=== PATIENT | male | born 1950 | race Caucasian/White ===

== ENCOUNTER 2017-12-19 16:02 | Emergency (ER) | payer MEDICARE, BC ==
--- NOTE | 2017-12-19 17:41 | EDM.PDOC ---
ED HPI GENERAL MEDICAL PROBLEM - General Chief Complaint: General Stated Complaint: NECK PROBLEMS AND HEAD PAIN [id number] Time Seen by Provider: 12/19/17 17:46 Source of Information: Reports: Patient History Limitations: Reports: No Limitations - History of Present Illness INITIAL COMMENTS - FREE TEXT/NARRATIVE: Patient comes emergency department today with his significant other with concerns of fatigue and headache. Over the past week the patient has been very tired and fatigued. He gets up in the morning and goes downstairs and is on the couch and sleeps the rest of the day. This is not normal for him. He is also complained of a posterior occipital headache that radiates up to the middle most cephalad aspect of the skull. He has not fallen and hit his head recently. No weakness dizziness or lightheadedness. No fever no chills. No change in the functionality of his upper or lower extremities. No paresthesias of his upper or lower extremity. No change in his bowel or bladder. His vision is somewhat blurry and saw an flange machine operator this week and was diagnosed with cataracts. He also has noted to have some injected sclera for which I put him on some steroid eyedrops for his injection of the sclera as well as his continuous watering of his eyes. No problems sleeping and no sleep apnea per the significant other. He does admit to drinking alcohol on a daily basis about 4-7 drinks a day plus quite a bit of wine at dinner and before dinner. No black or tarry stools. No recent falls or trauma. No change in visual acuity other than blurry and watery eyes and difficult focusing. . Occipital Headache Pain Score (Numeric/FACES): 2 - Related Data Allergies Allergy/AdvReac Type Severity Reaction Status Date / Time No Known Allergies Allergy Verified 12/19/17 16:56 Home Meds: Home Meds Allopurinol [Zyloprim] 100 mg PO DAILY 12/19/17 [History] Bisoprolol/Hydrochlorothiazide [Bisoprolol/HCTZ 10-6.25 MG] 1 tab PO DAILY 12/19 [History] Lisinopril 40 mg PO DAILY 12/19/17 [History] atorvaSTATin [Lipitor] 20 mg PO DAILY 12/19/17 [History] Past Medical History Cardiovascular History: Reports: High Cholesterol, Hypertension - Past Surgical History HEENT Surgical History: Reports: Adenoidectomy, Tonsillectomy Social & Family History - Tobacco Use Smoking Status *Q: Never Smoker - Caffeine Use Caffeine Use: Reports: Soda - Alcohol Use Days Per Week of Alcohol Use: 7 Number of Drinks Per Day: 5 Total Drinks Per Week: 35 - Recreational Drug Use Recreational Drug Use: No ED ROS GENERAL - Review of Systems Review Of Systems: ROS reveals no pertinent complaints other than HPI. ED EXAM, GENERAL - Physical Exam Exam: See Below Exam Limited By: No Limitations General Appearance: Alert, WD/WN, No Apparent Distress Eye Exam: Bilateral Eye: EOMI, PERRL, Other (sclera bilaterally with injection. Noted cataracts bilaterally as well. ) Ears: Normal External Exam, Normal Canal, Normal TMs Ear Exam: Bilateral Ear: TM normal Nose: Normal Inspection, Normal Mucosa, No Blood Throat/Mouth: Normal Inspection, Normal Lips, Normal Oropharynx Head: Atraumatic, Normocephalic Neck: Normal Inspection, Supple, Non-Tender, Full Range of Motion Respiratory/Chest: No Respiratory Distress, Lungs Clear, Normal Breath Sounds, No Accessory Muscle Use Cardiovascular: Normal Peripheral Pulses, Regular Rate, Rhythm Peripheral Pulses: 2+: Radial (L), Radial (R), Posterior Tibial (L), Posterior Tibial (R), Dorsalis Pedis (L), Dorsalis Pedis (R) GI/Abdominal: Normal Bowel Sounds, Soft, No Organomegaly, No Distention (Male) Exam: Deferred Rectal (Males) Exam: Deferred Back Exam: Normal Inspection, Full Range of Motion Extremities: Normal Inspection, Normal Range of Motion, No Pedal Edema, Normal Capillary Refill Neurological: Alert, Oriented, CN II-XII Intact, Normal Cognition, Normal Gait, Normal Reflexes, No Motor/Sensory Deficits Psychiatric: Anxious Skin Exam: Warm, Dry, Intact, Normal Color, No Rash Lymphatic: No Adenopathy EKG INTERPRETATION EKG Date: 12/19/17 Time: 18:11 Rhythm: NSR Rate (Beats/Min): 62 [place]: Normal P-Wave: Present QRS: Normal ST-T: Normal QT: Normal Comparison: NA - No Prior EKG Course - Vital Signs Last Recorded V/S: Last Vital Signs Temp 37.1 C 12/19/17 19:47 Pulse 71 12/19/17 19:47 Resp 14 12/19/17 19:47 BP 156/78 H 12/19/17 19:47 Pulse Ox 98 12/19/17 19:47 - Orders/Labs/Meds Orders: Active Orders 24 hr Category Date Time Status EKG 12 Lead [EKG Documentation Completion] [] URGENT Care 12/19/17 17:50 Active Peripheral IV Care [RC] . DIRECTED Care 12/19/17 17:47 Active UA W/MICROSCOPIC [URIN] Stat Lab 12/19/17 19:21 Ordered Peripheral IV Insertion Adult [OM.PC] Stat Oth 12/19/17 17:47 Ordered Labs: Laboratory Tests 12/19/17 12/19/17 12/19/17 Range/Units 18:01 18:01 18:01 WBC 5.6 (5.0-10.0) 10^3/uL RBC 4.69 (4.6-6.2) 10^6/uL Hgb 16.4 (14.0-18.0) g/dL Hct 45.8 (40.0-54.0) % MCV 97.7 (80-100) fL MCH 35.0 H (27.0-34.0) pg MCHC 35.8 H (33.0-35.0) g/dL Plt Count 76 L (150-450) 10^3/uL Neut % (Auto) 67.3 (42.2-75.2) % Lymph % (Auto) 16.9 L (20.5-50.1) % [place] % (Auto) 15.0 H (2-8) % Eos % (Auto) 0.4 L (1.0-3.0) % Baso % (Auto) 0.4 (0.0-1.0) % Sodium 136 (135-145) mmol/L Potassium 4.3 (3.6-5.0) mmol/L Chloride 104 (101-111) mmol/L Carbon Dioxide 23.0 (21.0-31.0) mmol/L Anion Gap 13.3 BUN 9 (7-18) mg/dL Creatinine 0.9 (0.6-1.3) mg/dL Est Cr Clr Drug Dosing 79.98 mL/min Estimated GFR (MDRD) > 60 BUN/Creatinine Ratio 10.00 Glucose 95 (74-105) mg/dL Calcium 8.7 (8.4-10.2) mg/dl Magnesium 1.5 L (1.8-2.5) mg/dL Total Bilirubin 2.4 H (0.2-1.0) mg/dL AST 122 H (10-42) IU/L ALT 41 (10-60) IU/L Alkaline Phosphatase 127 H (42-121) IU/L Troponin I < 0.02 (0.00-0.02) ng/ml C-Reactive Protein 1.5 H (0.0-1.3) mg/dL Total Protein 7.3 (6.7-8.2) g/dl Albumin 3.3 (3.2-5.5) g/dl Globulin 4.0 Albumin/Globulin Ratio 0.83 TSH, Ultra Sensitive 2.87 (0.45-5.33) uIu/mL Urine Color (YELLOW) Urine Appearance (CLEAR) Urine pH (5.0-9.0) Ur Specific [place] (1.005-1.030) Urine Protein (NEGATIVE) Urine Glucose (UA) (NEGATIVE) Urine Ketones (NEGATIVE) Urine Occult Blood (NEGATIVE) Urine Nitrite (NEGATIVE) Urine Bilirubin (NEGATIVE) Urine Urobilinogen (0.2-1.0) mg/dL Ur Leukocyte Esterase (NEGATIVE) Urine RBC /HPF Urine WBC (0-5/HPF) /HPF Ur Epithelial Cells /HPF Urine Bacteria (0-FEW/HPF) /HPF Urine Mucus /LPF Ethyl Alcohol 40 mg/dL //18 Range/Units 19:21 WBC (5.0-10.0) 10^3/uL RBC (4.6-6.2) 10^6/uL Hgb (14.0-18.0) g/dL Hct (40.0-54.0) % MCV (80-100) fL MCH (27.0-34.0) pg MCHC (33.0-35.0) g/dL Plt Count (150-450) 10^3/uL Neut % (Auto) (42.2-75.2) % Lymph % (Auto) (20.5-50.1) % [place] % (Auto) (2-8) % Eos % (Auto) (1.0-3.0) % Baso % (Auto) (0.0-1.0) % Sodium (135-145) mmol/L Potassium (3.6-5.0) mmol/L Chloride (101-111) mmol/L Carbon Dioxide (21.0-31.0) mmol/L Anion Gap BUN (7-18) mg/dL Creatinine (0.6-1.3) mg/dL Est Cr Clr Drug Dosing mL/min Estimated GFR (MDRD) BUN/Creatinine Ratio Glucose (74-105) mg/dL Calcium (8.4-10.2) mg/dl Magnesium (1.8-2.5) mg/dL Total Bilirubin (0.2-1.0) mg/dL AST (10-42) IU/L ALT (10-60) IU/L Alkaline Phosphatase (42-121) IU/L Troponin I (0.00-0.02) ng/ml C-Reactive Protein (0.0-1.3) mg/dL Total Protein (6.7-8.2) g/dl Albumin (3.2-5.5) g/dl Globulin Albumin/Globulin Ratio TSH, Ultra Sensitive (0.45-5.33) uIu/mL Urine Color Dark yellow (YELLOW) Urine Appearance Clear (CLEAR) Urine pH 7.0 (5.0-9.0) Ur Specific [place] 1.015 (1.005-1.030) Urine Protein Negative (NEGATIVE) Urine Glucose (UA) Negative (NEGATIVE) Urine Ketones Negative (NEGATIVE) Urine Occult Blood Negative (NEGATIVE) Urine Nitrite Negative (NEGATIVE) Urine Bilirubin Negative (NEGATIVE) Urine Urobilinogen 1.0 (0.2-1.0) mg/dL Ur Leukocyte Esterase Negative (NEGATIVE) Urine RBC 0-5 /HPF Urine WBC 0-5 (0-5/HPF) /HPF Ur Epithelial Cells Few /HPF Urine Bacteria Few (0-FEW/HPF) /HPF Urine Mucus Few H /LPF Ethyl Alcohol mg/dL Meds: Medications Discontinued Medications Generic Name Dose Route Start Last Admin Trade Name Freq PRN Reason Stop Dose Admin Multivitamins/Minerals 10 ml/ 1,011.2 mls @ 500 mls/hr 12/19/17 17:48 18:04 Folic Acid 1 mg/ Thiamine HCl IV 12/19/17 19:49 500 mls/hr 100 mg/ Lactated Ringer's ONETIME ONE Administration Magnesium Sulfate 2 gm/ Premix 50 mls @ 25 mls/hr 12/19/17 19:15 12/19/17 20: 13 IV 12/19/17 21:14 25 mls/hr ONETIME ONE Administration Sodium Chloride 1,000 mls @ 125 mls/hr 12/19/17 20:30 Normal Saline IV ASDIRECTED VERONICA Sodium Chloride 10 ml 12/19/17 17:47 12/19/17 18:05 Saline Flush FLUSH 10 ml ASDIRECTED PRN Administration Keep Vein Open - Radiology Interpretation Free Text/Narrative:: CT head no acute intracranial findings although right frontal concerns for prominent vein possible venous thrombosus, MRI MRV recommended for further evaluation. - Re-Assessments/Exams Free Text/Narrative Re-Assessment/Exam: 12/19/17 18:23 IV Banana bag, 12/19/17 22:16 Magnesium 2gram IVPB over 2 hrs. NS at 125mls/hr. Departure - Departure Time of Disposition: 20:15 Disposition: DC/Tfer to [facility] 02 Clinical Impression: Headache Qualifiers: Headache type: unspecified Headache chronicity pattern: unspecified pattern Intractability: intractable Qualified Code(s): R51 - Headache - Discharge Information Referrals: PCP,None [Primary Care Provider] - Forms: ED Department Discharge ED Communication - Discussed Case With (1) Discussed Case With (1): Admitting Provider (Dr. Stephenson hospitalist and Dr. Vargas the neurologist at [facility]. HPI ER COURSE findings and concerns were relayed to him. They accepted the patient in transfer to their facility.) - My Orders Last 24 Hours: My Active Orders 12/19/17 17:47 Peripheral IV Care [RC] . DIRECTED Peripheral IV Insertion Adult [OM.PC] Stat 12/19/17 17:50 EKG 12 Lead [EKG Documentation Completion] [RC] URGENT 12/19/17 19:21 UA W/MICROSCOPIC [URIN] Stat - Assessment/Plan Last 24 Hours: My Active Orders 12/19/17 17:47 Peripheral IV Care [RC] . DIRECTED Peripheral IV Insertion Adult [OM.PC] Stat 12/19/17 17:50 EKG 12 Lead [EKG Documentation Completion] [RC] URGENT 12/19/17 19:21 UA W/MICROSCOPIC [URIN] Stat
[2017-12-19] MEDS ORDERED: Sodium Chloride 0.9% 10 ML Syringe FLUSH PRN (17:47)
[2017-12-19] MEDS ORDERED: MVI, Adult with Vitamin K 10 ML, Folic Acid 1 MG, Thiamine 100 MG in Lactated Ringers 1... IV ONE ×4 (17:48)
[2017-12-19 18:50] LABS: ANION GAP 13.3; CHLORIDE,CL 104 mmol/L (101-111)
[2017-12-19 18:56] LABS: SODIUM,NA 136 mmol/L (135-145)
[2017-12-19] MEDS ORDERED: Magnesium Sulfate/Water 2 GM in Premix Bag 1 BAG IV ONE (19:15)
[2017-12-19] MEDS ORDERED: Sodium Chloride 0.9% 1,000 ML IV SCH (20:30)
--- NOTE | 2017-12-21 07:31 | EKG ---
12/19/2017- LEAH SOARES - EKG per my reading, shows sinus rhythm at a rate of 62. [facility] /[id number]
== END 2017-12-19 21:14 ==
LOC: DL.ED 16:02
DX: R51 Headache (principal); I10 Essential (primary) hypertension; E78.00 Pure hypercholesterolemia, unspecified; Z79.899 Other long term (current) drug therapy
CPT/HCPCS: 36415; 70450; 80053; 81001; 83735; 84443; 84484; 85025; 86140; 93005; 93010; 96365; 96366; 96367; 99285; G0480; J3411; J7050; J7120; 99284; J3475; J3490

== ENCOUNTER → 2018-10-21 | Outpatient (CLI) | payer MEDICARE, BC ==
--- NOTE | 2018-10-21 15:41 | US ---
Clinical history: 68-year-old male with thrombocytopenia,'s hemachromatosis, cirrhosis the liver and ascites. Rule out hepatocellular carcinoma this patient with history EtOH abuse. Interpretation: Enlarged homogeneously dense liver that measures 16.1 cm L x 10.5 cm x 7.9 cm AP diameter. *No discrete intrahepatic cystic or solid mass lesion. No abnormal intra or extrahepatic biliary duct dilatation. Uniformly thickened gallbladder wall and dependent large intraluminal echogenic "shadowing" gallstones. Large volume ascites demonstrated clearly in all 4 quadrants of the abdomen. CONCLUSION: Disease gallbladder. Ascites. Large liver.
== END ==
LOC: DL.US 09:43
PROVIDERS: ATTEND Internal Medicine Gastroenterology
DX: K70.31 Alcoholic cirrhosis of liver with ascites (principal); E83.118 Other hemochromatosis; K82.9 Disease of gallbladder, unspecified
CPT/HCPCS: 76705

== ENCOUNTER 2018-11-24 23:45 | Emergency (ER) | payer MEDICARE, BC ==
--- NOTE | 2018-11-24 23:59 | EDM.PDOC ---
ED HPI GENERAL MEDICAL PROBLEM - General Chief Complaint: Abdominal Pain Stated Complaint: UMBILICAL HERNIA AND TWISTED? [id number] Time Seen by Provider: 11/24/18 23:56 Source of Information: Reports: Patient History Limitations: Reports: No Limitations - History of Present Illness INITIAL COMMENTS - FREE TEXT/NARRATIVE: gives long h/o umblic hernia and was told by surgeons it's not fixable. usually can push it back in when it pops out but tonight been out past few hours and unable to do so. c/o pain in area. last ate at 5pm. Lower Abdomen Pain Score (Numeric/FACES): 6 - Related Data Allergies Allergy/AdvReac Type Severity Reaction Status Date / Time No Known Allergies Allergy Verified 11/24/18 23:55 Home Meds: Home Meds Folic Acid 11/24/18 [History] Furosemide 11/24/18 [History] Spironolactone 11/24/18 [History] Past Medical History Cardiovascular History: Reports: High Cholesterol, Hypertension - Past Surgical History HEENT Surgical History: Reports: Adenoidectomy, Tonsillectomy Social & Family History - Caffeine Use Caffeine Use: Reports: Soda ED ROS GENERAL - Review of Systems Review Of Systems: ROS reveals no pertinent complaints other than HPI. ED EXAM, GI/ABD - Physical Exam Exam: See Below Exam Limited By: No Limitations General Appearance: Alert, WD/WN, Mild Distress, Other (disocmfort) Ears: Hearing Grossly Normal Throat/Mouth: Normal Voice, No Airway Compromise Head: Atraumatic Neck: Non-Tender, Full Range of Motion Respiratory/Chest: No Respiratory Distress Cardiovascular: Regular Rate, Rhythm GI/Abdominal Exam: Tender, Other (tender non reducible umbilic hernia, BS slightly increase.). No: Distended, Guarding, Rigid, Rebound Neurological: Alert, Oriented, Normal Cognition, Normal Gait, No Motor/Sensory Deficits Psychiatric: Flat Affect Skin Exam: Warm, Dry, Normal Color Lymphatic: No Adenopathy Course - Vital Signs Last Recorded V/S: Last Vital Signs Temp 36.3 C 11/24/18 23:50 Pulse 89 11/24/18 23:50 Resp 18 11/24/18 23:50 BP 146/79 H 11/24/18 23:50 Pulse Ox 99 11/24/18 23:50 - Orders/Labs/Meds Orders: Active Orders 24 hr Category Date Time Status Abdomen Pelvis wo Cont [CT] Urgent Exams 11/25/18 00:01 Taken Labs: Laboratory Tests 11/25/18 11/25/18 Range/Units 00:10 00:10 WBC 5.1 (5.0-10.0) 10^3/uL RBC 4.35 L (4.6-6.2) 10^6/uL Hgb 14.2 D (14.0-18.0) g/dL Hct 40.3 (40.0-54.0) % MCV 92.6 D (80-100) fL MCH 32.6 (27.0-34.0) pg MCHC 35.2 H (33.0-35.0) g/dL Plt Count 97 L (150-450) 10^3/uL Neut % (Auto) 59.1 (42.2-75.2) % Lymph % (Auto) 21.6 (20.5-50.1) % [place] % (Auto) 16.9 H (2-8) % Eos % (Auto) 1.8 (1.0-3.0) % Baso % (Auto) 0.6 (0.0-1.0) % Sodium 136 (135-145) mmol/L Potassium 3.4 L (3.6-5.0) mmol/L Chloride 107 (101-111) mmol/L Carbon Dioxide 20.0 L (21.0-31.0) mmol/L Anion Gap 12.4 BUN 11 (7-18) mg/dL Creatinine 0.8 (0.6-1.3) mg/dL Est Cr Clr Drug Dosing 88.72 mL/min Estimated GFR (MDRD) > 60 BUN/Creatinine Ratio 13.75 Glucose 105 (74-105) mg/dL Calcium 8.1 L (8.4-10.2) mg/dl Total Bilirubin 2.1 H (0.2-1.0) mg/dL AST 54 H (10-42) IU/L ALT 24 (10-60) IU/L Alkaline Phosphatase 118 (42-121) IU/L Total Protein 7.1 (6.7-8.2) g/dl Albumin 2.8 L (3.2-5.5) g/dl Globulin 4.3 Albumin/Globulin Ratio 0.65 Meds: Medications Discontinued Medications Generic Name Dose Route Start Last Admin Trade Name Jaspreet PRN Reason Stop Dose Admin Morphine Sulfate 2 mg 11/25/18 01:01 11/25/18 01:07 Morphine IVPUSH 11/25/18 01:02 2 mg ONETIME ONE Administration Ondansetron HCl 4 mg 11/25/18 01:01 11/25/18 01:07 Zofran IV 11/25/18 01:02 4 mg ONETIME ONE Administration - Re-Assessments/Exams Free Text/Narrative Re-Assessment/Exam: 11/25/18 01:16 re-exam; pt states pushed onto it and it suddenly went back in. feels good and wants to go home. Departure - Departure Time of Disposition: 01:17 Disposition: Home, Self-Care 01 Condition: Fair Clinical Impression: Umbilical hernia Qualifiers: Obstruction and gangrene presence: without obstruction or gangrene Qualified Code(s): K42.9 - Umbilical hernia without obstruction or gangrene - Discharge Information Instructions: Umbilical Hernia, Adult Forms: ED Department Discharge Additional Instructions: 1) wear belt to hold in hernia 2) avoid bending lifting straining 3) follow up at clinic 4) recheck if there is any change or concern - My Orders Last 24 Hours: My Active Orders 11/25/18 00:01 Abdomen Pelvis wo Cont [CT] Urgent - Assessment/Plan Last 24 Hours: My Active Orders 11/25/18 00:01 Abdomen Pelvis wo Cont [CT] Urgent
[2018-11-25 00:34] LABS: ANION GAP 12.4; CHLORIDE,CL 107 mmol/L (101-111); SODIUM,NA 136 mmol/L (135-145)
[2018-11-25] MEDS ORDERED: Morphine 2 MG/ML Syringe IVPUSH ONE (01:01)
[2018-11-25] MEDS ORDERED: Ondansetron 4 MG/2 ML SDV IV ONE (01:01)
== END 2018-11-25 01:29 | disposition home or self-care (01) ==
LOC: DL.ED 23:45
DX: K42.9 Umbilical hernia without obstruction or gangrene (principal); I10 Essential (primary) hypertension
CPT/HCPCS: 36415; 74176; 80053; 85025; 96374; 96375; 99284; J2270; J2405

== ENCOUNTER 2020-11-20 17:36 | Emergency (ER) | payer MEDICARE, BC ==
[2020-11-20] MEDS ORDERED: Sodium Chloride 0.9% 1,000 ML IV ONE (19:40)
[2020-11-20] MEDS ORDERED: HYDROmorphone 1 MG/ML Syringe IVPUSH ONE (19:40)
--- NOTE | 2020-11-20 19:51 | EDM.PDOC ---
ED HPI GENERAL MEDICAL PROBLEM - General Chief Complaint: Gastrointestinal Problem Stated Complaint: UNBILICAL HERNIA Time Seen by Provider: 11/20/20 19:20 Source of Information: Reports: Patient, Family History Limitations: Reports: No Limitations - History of Present Illness INITIAL COMMENTS - FREE TEXT/NARRATIVE: ED with c/o pain with umbilical hernia, not reducing today. Woke with bulging at 5 am. Has been seen x 3 and told not surgical candidate. No vomiting. still drinking water, no solids since last paolo. Feels rest of abdomen distended also. pain 10/10. No passing flatus, No fever. Abdomen Pain Score (Numeric/FACES): 10 - Related Data Allergies Allergy/AdvReac Type Severity Reaction Status Date / Time No Known Allergies Allergy Verified 11/24/18 23:55 Home Meds: Home Meds Folic Acid 1 mg PO DAILY 11/24/18 [History] Spironolactone 100 mg PO DAILY 11/24/18 [History] Past Medical History Cardiovascular History: Reports: High Cholesterol, Hypertension - Past Surgical History HEENT Surgical History: Reports: Adenoidectomy, Tonsillectomy GI Surgical History: Reports: Other (See Below) Other GI Surgeries/Procedures: Umbilical hernia Social & Family History - Family History Family Medical History: No Pertinent Family History - Tobacco Use Tobacco Use Status *Q: Never Tobacco User Second Hand Smoke Exposure: No - Caffeine Use Caffeine Use: Reports: Coffee - Recreational Drug Use Recreational Drug Use: No ED ROS GENERAL - Review of Systems Review Of Systems: Comprehensive ROS is negative, except as noted in HPI. ED EXAM, GI/ABD - Physical Exam Exam: See Below Exam Limited By: No Limitations General Appearance: Alert, Mild Distress Ears: Normal External Exam GI/Abdominal Exam: Distended, Tender, Abnormal Bowel Sounds, Hernia (large firm umbilical hernia) Course - Vital Signs Last Recorded V/S: Last Vital Signs Temp 97.9 F 11/20/20 19:05 Pulse 99 11/20/20 19:05 Resp 18 11/20/20 19:05 BP 154/76 H 11/20/20 19:05 Pulse Ox 97 11/20/20 19:05 - Orders/Labs/Meds Labs: Laboratory Tests 11/20/20 11/20/20 11/20/20 Range/Units 20:09 20:09 20:09 WBC 10.5 H (5.0-10.0) 10^3/uL RBC 4.51 L (4.6-6.2) 10^6/uL Hgb 15.4 (14.0-18.0) g/dL Hct 42.5 (40.0-54.0) % MCV 94.2 (80-100) fL MCH 34.1 H (27.0-34.0) pg MCHC 36.2 H (33.0-35.0) g/dL Plt Count 78 L (150-450) 10^3/uL Neut % (Auto) 88.6 H (42.2-75.2) % Lymph % (Auto) 3.5 L (20.5-50.1) % [place] % (Auto) 7.7 (2-8) % Eos % (Auto) 0.0 L (1.0-3.0) % Baso % (Auto) 0.2 (0.0-1.0) % Sodium 138 (136-145) mmol/L Potassium 4.7 (3.5-5.1) mmol/L Chloride 104 (98-107) mmol/L Carbon Dioxide 18 L (21-32) mmol/L Anion Gap 20.7 H (7-13) mEq/L BUN 18 (7-18) mg/dL Creatinine 1.38 H (0.70-1.30) mg/dL Est Cr Clr Drug Dosing 49.96 mL/min Estimated GFR (MDRD) 51 BUN/Creatinine Ratio 13.0 (No establ ref range) Glucose 158 H (70-99) mg/dL Lactic Acid 5.7 H* (0.4-2.0) mmol/L Calcium 8.5 (8.5-10.1) mg/dL Total Bilirubin 2.1 H (0.2-1.0) mg/dL AST 72 H (15-37) U/L ALT 54 (16-63) U/L Alkaline Phosphatase 94 (46-116) U/L Total Protein 6.9 (6.4-8.2) g/dL Albumin 2.9 L (3.4-5.0) g/dL Globulin 4.0 Albumin/Globulin Ratio 0.73 SARS-CoV-2 RNA ([place]) (NEGATIVE) 11/20/20 Range/Units 23:55 WBC (5.0-10.0) 10^3/uL RBC (4.6-6.2) 10^6/uL Hgb (14.0-18.0) g/dL Hct (40.0-54.0) % MCV (80-100) fL MCH (27.0-34.0) pg MCHC (33.0-35.0) g/dL Plt Count (150-450) 10^3/uL Neut % (Auto) (42.2-75.2) % Lymph % (Auto) (20.5-50.1) % [place] % (Auto) (2-8) % Eos % (Auto) (1.0-3.0) % Baso % (Auto) (0.0-1.0) % Sodium (136-145) mmol/L Potassium (3.5-5.1) mmol/L Chloride (98-107) mmol/L Carbon Dioxide (21-32) mmol/L Anion Gap (7-13) mEq/L BUN (7-18) mg/dL Creatinine (0.70-1.30) mg/dL Est Cr Clr Drug Dosing mL/min Estimated GFR (MDRD) BUN/Creatinine Ratio (No establ ref range) Glucose (70-99) mg/dL Lactic Acid (0.4-2.0) mmol/L Calcium (8.5-10.1) mg/dL Total Bilirubin (0.2-1.0) mg/dL AST (15-37) U/L ALT (16-63) U/L Alkaline Phosphatase (46-116) U/L Total Protein (6.4-8.2) g/dL Albumin (3.4-5.0) g/dL Globulin Albumin/Globulin Ratio SARS-CoV-2 RNA ([place]) Negative (NEGATIVE) Meds: Medications Discontinued Medications Generic Name Dose Route Start Last Admin Trade Name Freq PRN Reason Stop Dose Admin Fentanyl 25 mcg 11/20/20 21:28 11/20/20 21:52 Fentanyl 100 Mcg/2 Ml Sdv IVPUSH 11/20/20 21:29 25 mcg ONETIME ONE Administration Hydromorphone HCl 1 mg 11/20/20 19:40 11/20/20 20:02 Hydromorphone 1 Mg/Ml Syringe IVPUSH 11/20/20 19:41 1 mg ONETIME ONE Administration Sodium Chloride 1,000 mls @ 125 mls/hr 11/20/20 19:40 11/20/20 20:01 Normal Saline IV 11/21/20 03:39 125 mls/hr .BOLUS ONE Administration Iopamidol 75 ml 11/20/20 21:11 11/20/20 21:55 Iopamidol 612 Mg/Ml 100 Ml Bottle IVPUSH 11/20/20 21:12 75 ml ONETIME ONE Administration - Re-Assessments/Exams Free Text/Narrative Re-Assessment/Exam: No bed availability, [facility], [place] or [facility]. Tc Dr Maikol Garcia, accepting of patient. Tx via [facility]. No increase in abdomen distension. Hernia remains firm. tender with palpation. Lightdozing after pain medication, Easily aroused to voice. Departure - Departure Time of Disposition: 00:05 Disposition: DC/Tfer to Acute Hospital 02 Condition: Undetermined Clinical Impression: Umbilical hernia with obstruction, Hx of esophageal varices - Discharge Information *PRESCRIPTION DRUG MONITORING PROGRAM REVIEWED*: No *COPY OF PRESCRIPTION DRUG MONITORING REPORT IN PATIENT PHILLIP: No Referrals: PCP,None [Primary Care Provider] - Forms: ED Department Discharge Sepsis Event Note (ED) - Evaluation Sepsis Screening Result: No Definite Risk - Focused Exam Vital Signs: Vital Signs Temp Pulse Resp BP Pulse Ox 11/20/20 19:05 97.9 F 99 18 154/76 H 97
[2020-11-20 20:42] LABS: ANION GAP 20.7 mEq/L (7-13)
[2020-11-20] MEDS ORDERED: Iopamidol 612 MG/ML 100 ML Bottle IVPUSH ONE (21:11)
[2020-11-20] MEDS ORDERED: fentaNYL 100 MCG/2 ML SDV IVPUSH ONE (21:28)
--- NOTE | 2020-11-20 22:35 | CT ---
PROCEDURE INFORMATION: Exam: CT Abdomen And Pelvis With Contrast Exam date and time: 11/20/2020 9:23 PM Age: 70 years old Clinical indication: Abdominal pain; Localized; Lower; Additional info: Umbilical hernia, pain, distension TECHNIQUE: Imaging protocol: Computed tomography of the abdomen and pelvis with contrast. Radiation optimization: All CT scans at this facility use at least one of these dose optimization techniques: automated exposure control; mA and/or kV adjustment per patient size (includes targeted exams where dose is matched to clinical indication); or iterative reconstruction. Contrast material: ISOVUE 300; Contrast volume: 75 ml; Contrast route: INTRAVENOUS (IV); COMPARISON: CT Abdomen Pelvis wo Cont 11/25/2018 12:27 AM FINDINGS: Liver: Liver appears cirrhotic. No suspicious hepatic mass. Gallbladder and bile ducts: No calcified gallstones. No ductal dilation. Pancreas: The pancreatic parenchyma is normal in bulk and sharply marginated. Duct is not dilated. No calcifications, masses, or abnormal fluid collections. Spleen: The spleen is enlarged, Homogeneous parenchyma. No subcapsular fluid collection or mass. In greatest dimension, the spleen measures 14 cm in length. Adrenal glands: There are no adrenal masses. There are no adrenal masses. Kidneys and ureters: Normal in parenchymal bulk. No hydronephrosis or asymmetric perinephric stranding. No solid masses. No stones. Stomach and bowel: Multiple proximal dilated small bowel loops which lead to the umbilical hernia containing small intestine. The small bowel within the intestine is also probably dilated measuring approximately 3.6 cm. Small bowel leaving the hernia is decompressed. Small amount of gas and stool are present within the large intestine. Large bowel is edematous along its entire proximal aspect into the sigmoid colonic region. No pneumatosis is seen. Appendix: The appendix is seen. It is normal. Intraperitoneal space: Trace ascites. No pneumoperitoneum. Vasculature: Large gastroesophageal varices. There is atherosclerotic calcification of the aorto-iliac tree. There is no abdominal aortic aneurysm. Lymph nodes: No enlarged lymph nodes. Urinary bladder: There is no bladder wall thickening, mass, or calculus. Reproductive: Prostate gland is normal in size. The seminal vesicles are unremarkable. Bones/joints: Age appropriate spondylosis. There are no suspicious lytic or osteosclerotic lesions. There are no vertebral compression fractures. Soft tissues: Umbilical hernia containing dilated small bowel. IMPRESSION: 1. Obstructing umbilical hernia containing loops of small bowel. There are signs of closed loop obstruction within the hernia. 2. Colitis. Possible etiologies to the colitis include infectious, pseudomembranous, and inflammatory bowel disease. 3. Liver appears cirrhotic. 4. Splenomegaly. 5. Large gastroesophageal varices. 6. Trace ascites.
== END 2020-11-21 00:04 ==
LOC: DL.ED 17:36
DX: K42.0 Umbilical hernia with obstruction, without gangrene (principal); E78.00 Pure hypercholesterolemia, unspecified; I10 Essential (primary) hypertension; Z20.822 Contact with and (suspected) exposure to COVID-19
CPT/HCPCS: 36415; 74177; 80053; 83605; 85025; 96374; 96375; 99284; 99285; J1170; J3010; J7030; Q9967; U0002

== ENCOUNTER 2021-11-15 11:06 | Emergency (ER) | payer MEDICARE, BC ==
[2021-11-15 12:09] LABS: AMPHETAMINES,URINE NEGATIVE (NEGATIVE); BARBITURATES,URINE NEGATIVE (NEGATIVE); BENZODIAZEPINE,URINE NEGATIVE (NEGATIVE); MDMA (ECSTASY), URINE NEGATIVE (NEGATIVE); METHADONE,URINE NEGATIVE (NEGATIVE); METHAMPHETAMINES,URINE NEGATIVE (NEGATIVE); OPIATES,URINE NEGATIVE (NEGATIVE); OXYCODONE,URINE NEGATIVE (NEGATIVE); PHENCYCLIDINE,URINE NEGATIVE (NEGATIVE); TCA,URINE NEGATIVE (NEGATIVE)
[2021-11-15 12:54] LABS: ANION GAP 16.2 mEq/L (7-13); CHLORIDE,CL 108 mmol/L (98-107); SODIUM,NA 141 mmol/L (136-145)
[2021-11-15 12:55] LABS: ESTIMATED GFR 67 mL/min (>=60)
[2021-11-15] MEDS ORDERED: Sodium Chloride 0.9% 1,000 ML IV ONE (13:42)
== END 2021-11-15 15:07 ==
LOC: DL.ED 11:06
DX: K72.90 Hepatic failure, unspecified without coma (principal); I10 Essential (primary) hypertension
CPT/HCPCS: 36415; 70450; 80053; 80305-QW; 80307; 81001; 82140; 83605; 84443; 85025; 93005; 99285-25